=== PATIENT | female | born 1980 | race Caucasian/White ===

== ENCOUNTER 2022-09-08 04:04 | Day surgery (SDC) | payer OTHER ==
[2022-09-07 17:22] VITALS: BMI 26.2
[2022-09-08 06:34] VITALS: RESP 18
[2022-09-08] MEDS ORDERED: PROPOFOL 20 ML ONE (08:28)
[2022-09-08] MEDS ORDERED: MIDAZOLAM HCL 2 MG/2 ML SINGLE DOSE VIAL ONE (08:29)
[2022-09-08] MEDS ORDERED: ELECTROLYTE-148 SOLN 1,000 ML IV SCH (09:30)
[2022-09-08 13:34] VITALS: BP 109/72; PULSE 72; TEMP 98
== END 2022-09-08 10:55 | disposition home or self-care (01) ==
LOC: JASU-SURG 04:04
PROVIDERS: ATTEND Urology
PROC: 0TF3XZZ Fragmentation in Right Kidney Pelvis, External Approach (ICD-10-PCS; principal; 2022-09-08 08:15)
DX: N20.0 Calculus of kidney (principal)
CPT/HCPCS: 81025

== ENCOUNTER 2022-11-23 05:22 | Day surgery (SDC) | payer OTHER ==
[2022-11-20 09:43] VITALS: BMI 26.6
[2022-11-23] MEDS ORDERED: ACETAMINOPHEN 1000 MG/100 ML BAG IVPB ONE (08:57)
[2022-11-23] MEDS ORDERED: DEXTROSE 5%-0.45% SALINE 1,000 ML IV SCH (09:00)
[2022-11-23] MEDS ORDERED: MIDAZOLAM HCL 2 MG/2 ML SINGLE DOSE VIAL ONE (09:46)
[2022-11-23] MEDS ORDERED: ceFAZolin 2 GRAM PREMIX BAG IVPB ONE (10:10)
[2022-11-23] MEDS ORDERED: PROPOFOL 20 ML ONE (10:18)
[2022-11-23] MEDS ORDERED: SUCCINYLCHOLINE CHLORIDE 200 MG/10 ML SYRINGE ONE (10:20)
[2022-11-23] MEDS ORDERED: ACETAMINOPHEN INJECTION 100 ML IVPB ONE (10:51)
[2022-11-23 14:30] VITALS: BP 110/66; PULSE 64; RESP 20; TEMP 98.3
== END 2022-11-23 14:30 | disposition home or self-care (01) ==
LOC: JASU-SURG 05:22
PROVIDERS: ATTEND Urology
PROC: 0TC18ZZ Extirpation of Matter from Left Kidney, Via Natural or Artificial Opening Endoscopic (ICD-10-PCS; principal; 2022-11-23 09:30)
PROC: 0T768DZ Dilation of Right Ureter with Intraluminal Device, Via Natural or Artificial Opening Endoscopic (ICD-10-PCS; 2022-11-23 09:30)
DX: N20.0 Calculus of kidney (principal)
CPT/HCPCS: 76000-TC-FY; 81025; 94760; C1758; C2617

== ENCOUNTER 2023-06-15 04:01 | Day surgery (SDC) | payer OTHER ==
[2023-06-09 18:01] VITALS: BMI 25.8
[2023-06-15 08:17] VITALS: RESP 18
[2023-06-15] MEDS ORDERED: ONDANSETRON 4 MG/2 ML VIAL ONE (10:02)
[2023-06-15] MEDS ORDERED: MIDAZOLAM HCL 2 MG/2 ML SINGLE DOSE VIAL ONE (10:02)
[2023-06-15] MEDS ORDERED: ceFAZolin SODIUM 1 GM VIAL ONE (10:02)
[2023-06-15] MEDS ORDERED: KETOROLAC TROMETHAMINE 30 MG/1 ML VIAL ONE (10:02)
[2023-06-15] MEDS ORDERED: ceFAZolin SODIUM 1 GM VIAL IVPB ONE (10:06)
[2023-06-15] MEDS ORDERED: ELECTROLYTE-148 SOLN 1,000 ML IV SCH (10:15)
[2023-06-15 10:43] VITALS: TEMP 97.8
[2023-06-15 12:54] VITALS: BP 109/71; PULSE 64
== END 2023-06-15 12:17 | disposition home or self-care (01) ==
LOC: JASU-SURG 04:01
PROVIDERS: ATTEND Urology
PROC: 0TF3XZZ Fragmentation in Right Kidney Pelvis, External Approach (ICD-10-PCS; principal; 2023-06-15 09:45)
DX: N20.0 Calculus of kidney (principal)
CPT/HCPCS: 81025